=== PATIENT | male | born 1965 | race Caucasian/White ===

== ENCOUNTER → 2020-01-21 | Outpatient (CLI) | payer BC ==
[2020-01-21 13:28] LABS: HEMATOCRIT 42.8 % (42.0-52.0); HEMOGLOBIN 13.8 g/dl (13.5-18.0); MEAN CELL VOLUME 91 fl (80.0-100.0); MEAN CORPUSCULAR HEMOGLOBIN 29 pg (27.0-31.0); MEAN CORPUSCULAR HGB CONC 32 g/dl (33.0-37.0); MEAN PLATELET VOLUME 11.6 fl (7.4-10.4); PLATELET COUNT 132 K/mm3 (130-400); RED BLOOD COUNT 4.72 M/mm3 (4.20-5.60); REDCELL DISTRIBUTION WIDTH-CV 12.5 % (11.5-14.5)
[2020-01-21 13:42] LABS: ALBUMIN 4.6 gm/dL (3.5-5.0); BILIRUBIN,TOTAL 1.1 mg/dL (0.0-1.0); CALCIUM 10.3 mg/dL (8.4-10.2); CREATININE, serum 1.15 (0.66-1.25); TOTAL PROTEIN 8.8 gm/dL (6.4-8.2)
[2020-01-21 13:55] LABS: BAND 6 % (0-10); EOSINOPHIL 1 % (0-4); LYMPHOCYTE 24 % (20.0-51.0); METAMYELOCYTE 2 % (0-0); NEUTROPHILS 55 % (42.0-75.2); PLATELET ESTIMATE NORMAL (NORMAL)
== END ==
LOC: COL.RAD 12:51
PROVIDERS: Emergency Medicine
DX: C85.90 Non-Hodgkin lymphoma, unspecified, unspecified site (principal); K80.20 Calculus of gallbladder without cholecystitis without obstruction; N20.0 Calculus of kidney

== ENCOUNTER → 2020-01-26 | Outpatient (CLI) | payer BC | LOC: COL.RAD 07:06 | DX: K80.20 Calculus of gallbladder without cholecystitis without obstruction (principal); N28.89 Other specified disorders of kidney and ureter | CPT/HCPCS: A9537; J2805 ==

== ENCOUNTER → 2020-02-01 | Outpatient (CLI) | payer BC | LOC: COL.RAD 09:45 | DX: E27.8 Other specified disorders of adrenal gland (principal); N20.0 Calculus of kidney; K80.20 Calculus of gallbladder without cholecystitis without obstruction; R59.0 Localized enlarged lymph nodes; R16.1 Splenomegaly, not elsewhere classified; K76.0 Fatty (change of) liver, not elsewhere classified; N40.0 Benign prostatic hyperplasia without lower urinary tract symptoms | CPT/HCPCS: Q9967 ==

== ENCOUNTER → 2020-02-17 | Outpatient (CLI) | payer BC | LOC: COL.RAD 14:20 | DX: K80.20 Calculus of gallbladder without cholecystitis without obstruction (principal); E27.8 Other specified disorders of adrenal gland | CPT/HCPCS: A9585 ==

== ENCOUNTER 2020-06-28 03:36 | Observation (INO) | payer BC ==
[~2020-06-28] VITALS: Ht 172.7 cm; Wt 90.9 kg
[2020-06-28 04:51] LABS: MEAN CELL VOLUME 93 fl (80.0-100.0); MEAN CORPUSCULAR HEMOGLOBIN 33 pg (27.0-31.0); MEAN CORPUSCULAR HGB CONC 36 g/dl (33.0-37.0); MEAN PLATELET VOLUME 10.7 fl (7.4-10.4); PLATELET COUNT 123 K/mm3 (130-400); REDCELL DISTRIBUTION WIDTH-CV 18.4 % (11.5-14.5)
[2020-06-28 04:56] LABS: HEMATOCRIT 30.6 % (42.0-52.0)
[2020-06-28 05:10] LABS: ALBUMIN 4.1 gm/dL (3.5-5.0); C-REACTIVE PROTEIN 1.2 mg/dL (0.0-0.9); CALCIUM 9.2 mg/dL (8.4-10.2); CREATININE, serum 1.03 (0.66-1.25); MAGNESIUM 1.8 mg/dL (1.6-2.3); POTASSIUM 4.3 mmol/L (3.4-5.0); TOTAL PROTEIN 7.3 gm/dL (6.4-8.2)
[2020-06-28 05:19] LABS: TROPONIN-I 0.016 ng/mL (0.000-0.035)
[2020-06-28 05:50] LABS: BAND 6 % (0-10); LYMPHOCYTE 8 % (20.0-51.0); NEUTROPHILS 84 % (42.0-75.2)
[2020-06-28 05:51] LABS: ANISOCYTOSIS 2+; TEAR DROP CELLS 1+
[2020-06-28 05:54] LABS: COLLECTION METHOD CLEAN CATCH
[2020-06-28 06:12] LABS: PH 7 (5-8); SQUAMOUS EPITHELIAL None Seen /hpf; URINE APPEARANCE Clear; URINE BACTERIA None Seen /hpf; URINE BILIRUBIN Negative (NEGATIVE); URINE BLOOD Negative (NEGATIVE); URINE COLOR Yellow; URINE GLUCOSE Negative (NEGATIVE); URINE KETONE Negative (NEGATIVE); URINE LEUKOCYTE ESTERASE Negative (NEGATIVE); URINE NITRATE Negative (NEGATIVE); URINE PROTEIN(semi-quant) Negative (NEGATIVE); URINE RBC 0-2 /hpf; URINE UROBILINOGEN Negative (NEGATIVE)
[2020-06-28] MEDS ORDERED: PRILOSEC 20MG20 MG PO (07:41)
[2020-06-28] MEDS ORDERED: ATIVAN 0.50.5 MG/TAB PO (07:42)
[2020-06-28] MEDS ORDERED: FLORINEF ACETA0.1 MG PO (07:42)
[2020-06-28] MEDS ORDERED: UROCIT-K 1010 MEQ PO (07:43)
[2020-06-28] MEDS ORDERED: ZOFRAN 4MG T4 MG/TAB PO (07:44)
[2020-06-28] MEDS ORDERED: SYNTHROID0.125 MG/T PO (07:44)
[2020-06-28] MEDS ORDERED: SINGULAIR 110 MG/TAB PO (07:44)
[2020-06-28] MEDS ORDERED: COMPAZINE 110 MG/TAB PO (07:45)
[2020-06-28] MEDS ORDERED: CORTEF 10MG TAB10 MG PO (13:53)
[2020-06-28 17:16] VITALS: BP 102/67; PULSE 95; TEMP 98.1
[2020-06-28 17:18] VITALS: BP 102/67; PULSE 95; TEMP 98.1
--- NOTE | 2020-06-28 18:42 | NUR ---
Pt up to room 307, A&0, independent in room, on room air, breathing is even and unlabored. Pt denies SOB, N/V/D, LS cta, HRRR, BS active X4, pulses strong bilaterally. 1+ edema to BLE. RAC IV w/ NS @ 125ml/hr running w/o difficulty. Pt down to have CT of chest this afternoon, allergy to iodine/contrast, prepped w/ Benadryl, Solumedrol, and pepcid IV per verbal order from Dr. Biswas. Pt tolerated well. Pulses strong bilaterally. Pt denies any pain or needs at this time. All questions answered, POC discussed.
[2020-06-28 20:19] VITALS: BP 117/73; PULSE 99; TEMP 97.5
[2020-06-29 00:39] VITALS: BP 110/66; PULSE 90; TEMP 97.8
[2020-06-29] MEDS ORDERED: FLONASE NASAL S16 GM NS (01:07)
[2020-06-29 04:54] VITALS: BP 117/74; PULSE 100; TEMP 97.7
[2020-06-29 06:31] LABS: MEAN CELL VOLUME 93 fl (80.0-100.0); MEAN CORPUSCULAR HGB CONC 37 g/dl (33.0-37.0); MEAN PLATELET VOLUME 11.8 fl (7.4-10.4); PLATELET COUNT 105 K/mm3 (130-400); RED BLOOD COUNT 2.56 M/mm3 (4.20-5.60); REDCELL DISTRIBUTION WIDTH-CV 17.5 % (11.5-14.5)
[2020-06-29 06:39] LABS: ALBUMIN 3.7 gm/dL (3.5-5.0); BILIRUBIN,TOTAL 0.7 mg/dL (0.0-1.0); CALCIUM 8.8 mg/dL (8.4-10.2); CREATININE, serum 0.87 (0.66-1.25); HEMATOCRIT 23.9 % (42.0-52.0); MEAN CORPUSCULAR HEMOGLOBIN 34 pg (27.0-31.0); POTASSIUM 4.2 mmol/L (3.4-5.0); TOTAL PROTEIN 6.6 gm/dL (6.4-8.2)
[2020-06-29 06:41] LABS: HEMOGLOBIN 8.8 g/dl (13.5-18.0)
[2020-06-29 08:39] LABS: BAND 15 % (0-10); LYMPHOCYTE 5 % (20.0-51.0); NEUTROPHILS 80 % (42.0-75.2)
[2020-06-29 08:40] LABS: ANISOCYTOSIS 2+; MICROCYTOSIS 1+; POIKILOCYTOSIS 1+
[2020-06-29 08:41] LABS: PLATELET ESTIMATE NORMAL (NORMAL)
[2020-06-29 08:47] VITALS: BP 127/78; PULSE 99; TEMP 97.3
--- NOTE | 2020-06-29 09:04 | NUR ---
SW met with the patient to discuss discharge plan. The patient lives in [place] with his , Fiona (ph#[phone]). He reports independence with ADLs and does not have any DME. The patient's PCP is Dr. Nick Pan and he receives his medications at [facility] in [facility]. He reports no difficulties obtaining his meds. The patient does not have a DPOA-HC in EMR, but he states that he does have one completed and that his is his DPOA-HC. The patient plans to return back home with his upon discharge. No additional needs at this time.
--- NOTE | 2020-06-29 09:18 | NUR ---
Initial visit; Patient thanked [employer] for looking in on him and offering God's blessings and to keep him in [employer]'s prayers.
--- NOTE | 2020-06-29 09:40 | NUR ---
Patient is alert and oriented, denies any pain. clear-all lung field. heart sound is normal s1,s2. Provider DC 125mL NS this am. Plan is to discharge patient today after blood culture has been resolved. Patient remain afebrile.
[2020-06-29 12:05] VITALS: BP 122/70; PULSE 92; TEMP 97.8
[2020-06-29] MEDS ORDERED: AMOXICILLIN 8751 TAB PO (13:18)
--- NOTE | 2020-06-29 14:55 | NUR ---
Patient recieved discharge instruction, followup appt, new order for amoxicillin/Clavulanate. INT discontinued. Patient discharge home with . Patient have no further concern and question at this time
--- NOTE | 2020-06-29 15:12 | NUR ---
Patient was informed his wbc is 2.7 and need to take precaution. follow up for wbc recheck was setup for patient for the 07/05
== END 2020-06-29 14:30 | disposition home or self-care (01) ==
LOC: COL.ER 03:36 → MEDICAL 07:13
PROVIDERS: Emergency Medicine; Physician Assistant; ADMIT Student in an Organized Health Care Education/Training Program
DX: R50.9 Fever, unspecified (principal); R53.83 Other fatigue; R00.0 Tachycardia, unspecified; C85.86 Other specified types of non-Hodgkin lymphoma, intrapelvic lymph nodes; D63.0 Anemia in neoplastic disease; D61.818 Other pancytopenia; I95.9 Hypotension, unspecified; N20.0 Calculus of kidney; E03.9 Hypothyroidism, unspecified; G25.81 Restless legs syndrome; F41.9 Anxiety disorder, unspecified; R94.5 Abnormal results of liver function studies; Z20.828 Contact with and (suspected) exposure to other viral communicable diseases; Z91.041 Radiographic dye allergy status; Z79.899 Other long term (current) drug therapy
CPT/HCPCS: G0378; J0692; J1200; J1720; J2930; J7030; Q9967

== ENCOUNTER 2020-07-10 23:21 | Inpatient (IN) | payer BC ==
[~2020-07-10] VITALS: Ht 172.7 cm; Wt 87.9 kg
[~2020-07-10 23:21] MED LIST: AMOXICILLIN 8751 TAB PO; ATIVAN 0.50.5 MG/TAB PO; COMPAZINE 110 MG/TAB PO; CORTEF 10MG TAB10 MG PO; FLONASE NASAL S16 GM NS; FLORINEF ACETA0.1 MG PO; PRILOSEC 20MG20 MG PO; SINGULAIR 110 MG/TAB PO; SYNTHROID0.125 MG/T PO; UROCIT-K 1010 MEQ PO; ZOFRAN 4MG T4 MG/TAB PO
[2020-07-11 00:24] LABS: MEAN CELL VOLUME 97 fl (80.0-100.0); MEAN CORPUSCULAR HGB CONC 37 g/dl (33.0-37.0); MEAN PLATELET VOLUME 13.1 fl (7.4-10.4); PLATELET COUNT 76 K/mm3 (130-400); RED BLOOD COUNT 2.43 M/mm3 (4.20-5.60); REDCELL DISTRIBUTION WIDTH-CV 17.3 % (11.5-14.5)
[2020-07-11 00:27] LABS: HEMATOCRIT 23.5 % (42.0-52.0); HEMOGLOBIN 8.8 g/dl (13.5-18.0); MEAN CORPUSCULAR HEMOGLOBIN 36 pg (27.0-31.0)
[2020-07-11 00:39] LABS: COLLECTION METHOD CLEAN CATCH
[2020-07-11 00:40] LABS: ALBUMIN 3.9 gm/dL (3.5-5.0); BILIRUBIN,TOTAL 0.9 mg/dL (0.0-1.0); C-REACTIVE PROTEIN 1.6 mg/dL (0.0-0.9); CALCIUM 9.1 mg/dL (8.4-10.2); CREATININE, serum 1.01 (0.66-1.25); POTASSIUM 4.1 mmol/L (3.4-5.0); TOTAL PROTEIN 6.8 gm/dL (6.4-8.2)
[2020-07-11] MEDS ORDERED: AMOXICILLIN 8751 TAB PO (00:40)
[2020-07-11 00:57] LABS: BASOPHIL 4 % (0-2); LYMPHOCYTE 36 % (20.0-51.0); NEUTROPHILS 12 % (42.0-75.2); PLATELET ESTIMATE DECREASED (NORMAL)
[2020-07-11 00:58] LABS: ANISOCYTOSIS 1+; TEAR DROP CELLS 1+
[2020-07-11 01:26] LABS: MUCOUS Present /lpf; PH 8 (5-8); SQUAMOUS EPITHELIAL None Seen /hpf; URINE APPEARANCE Hazy; URINE BACTERIA Rare /hpf; URINE BILIRUBIN Negative (NEGATIVE); URINE BLOOD Negative (NEGATIVE); URINE COLOR Yellow; URINE GLUCOSE Negative (NEGATIVE); URINE KETONE Negative (NEGATIVE); URINE LEUKOCYTE ESTERASE Negative (NEGATIVE); URINE NITRATE Negative (NEGATIVE); URINE PROTEIN(semi-quant) Negative (NEGATIVE); URINE RBC 0-2 /hpf; URINE UROBILINOGEN Negative (NEGATIVE)
[2020-07-11 02:18] VITALS: BP 102/55; PULSE 76; TEMP 98.1
[2020-07-11 03:44] VITALS: BP 113/74; PULSE 108; TEMP 98
[2020-07-11 07:44] VITALS: BP 112/68; PULSE 119; TEMP 101
[2020-07-11 11:55] VITALS: BP 111/68; PULSE 112; TEMP 98.7
[2020-07-11 16:08] VITALS: BP 125/69; PULSE 109; TEMP 99.3
[2020-07-12] VITALS (10 sets, daily range): BP systolic 89–114; BP diastolic 43–97; PULSE 76–134; TEMP 98.1–99.9
[2020-07-12 06:40] LABS: MEAN CELL VOLUME 97 fl (80.0-100.0); MEAN CORPUSCULAR HGB CONC 37 g/dl (33.0-37.0); MEAN PLATELET VOLUME 13.2 fl (7.4-10.4); PLATELET COUNT 68 K/mm3 (130-400); RED BLOOD COUNT 2.35 M/mm3 (4.20-5.60); REDCELL DISTRIBUTION WIDTH-CV 18.1 % (11.5-14.5)
[2020-07-12 06:47] LABS: HEMATOCRIT 22.8 % (42.0-52.0); HEMOGLOBIN 8.5 g/dl (13.5-18.0); MEAN CORPUSCULAR HEMOGLOBIN 36 pg (27.0-31.0)
[2020-07-12 07:11] LABS: CALCIUM 8.9 mg/dL (8.4-10.2); CREATININE, serum 1.17 (0.66-1.25); POTASSIUM 4.3 mmol/L (3.4-5.0)
[2020-07-12 08:25] LABS: BAND 42 % (0-10); LYMPHOCYTE 9 % (20.0-51.0); METAMYELOCYTE 8 % (0-0); MYELOCYTE 7 % (0-0); NEUTROPHILS 26 % (42.0-75.2); NUCLEATED RED BLOOD CELL 2 (0-6)
[2020-07-12 08:26] LABS: HYPOCHROMIA 1+; PLATELET ESTIMATE DECREASED (NORMAL); SPHEROCYTE 1+; TEAR DROP CELLS 1+
[2020-07-12 08:42] LABS: PATHOLOGY DIFF REVIEW OK +
[2020-07-12] MEDS ORDERED: CORTEF 10MG TAB10 MG PO (17:12)
[2020-07-13 03:24] VITALS: BP 120/76; PULSE 100; TEMP 98.9
[2020-07-13 06:11] LABS: MEAN CELL VOLUME 95 fl (80.0-100.0); MEAN CORPUSCULAR HGB CONC 33 g/dl (33.0-37.0); MEAN PLATELET VOLUME 13.5 fl (7.4-10.4); PLATELET COUNT 63 K/mm3 (130-400); RED BLOOD COUNT 2.57 M/mm3 (4.20-5.60); REDCELL DISTRIBUTION WIDTH-CV 18.3 % (11.5-14.5)
[2020-07-13 06:16] LABS: HEMATOCRIT 24.5 % (42.0-52.0); MEAN CORPUSCULAR HEMOGLOBIN 31 pg (27.0-31.0)
[2020-07-13 06:26] LABS: CALCIUM 8.6 mg/dL (8.4-10.2); CREATININE, serum 0.98 (0.66-1.25); POTASSIUM 4.1 mmol/L (3.4-5.0)
[2020-07-13 07:56] LABS: BAND 45 % (0-10); LYMPHOCYTE 4 % (20.0-51.0); METAMYELOCYTE 17 % (0-0); MYELOCYTE 2 % (0-0); NEUTROPHILS 25 % (42.0-75.2); PLATELET ESTIMATE DECREASED (NORMAL)
[2020-07-13 07:57] LABS: MICROCYTOSIS 1+; TEAR DROP CELLS 1+
[2020-07-13 09:40] VITALS: BP 121/72; PULSE 101; TEMP 97.8
== END 2020-07-13 11:20 | disposition home or self-care (01) | DRG 872 ==
LOC: COL.ER 23:21 → MEDICAL 07-11 01:20
PROVIDERS: Physician Assistant; ADMIT Emergency Medicine
DX: A41.9 Sepsis, unspecified organism (principal); C85.90 Non-Hodgkin lymphoma, unspecified, unspecified site; E27.49 Other adrenocortical insufficiency; G25.81 Restless legs syndrome; D70.1 Agranulocytosis secondary to cancer chemotherapy; R50.81 Fever presenting with conditions classified elsewhere; T45.1X5A Adverse effect of antineoplastic and immunosuppressive drugs, initial encounter; Z20.828 Contact with and (suspected) exposure to other viral communicable diseases; D64.9 Anemia, unspecified; D69.6 Thrombocytopenia, unspecified; F41.9 Anxiety disorder, unspecified; K21.9 Gastro-esophageal reflux disease without esophagitis; E03.9 Hypothyroidism, unspecified
CPT/HCPCS: 99222-AI; 99232-AI; 99239; J0692; J1447; J1644; J2405; J7030

== ENCOUNTER 2020-08-02 11:02 | Emergency (ER) | payer BC ==
[~2020-08-02] VITALS: Ht 172.7 cm; Wt 90.9 kg
[2020-08-02 11:11] VITALS: TEMP 97.8
[2020-08-02] MEDS ORDERED: OMEGA-3 1000 MG1 CAP PO (11:17)
[2020-08-02] MEDS ORDERED: CRANBERRY450 MG PO (11:18)
[2020-08-02] MEDS ORDERED: MAGNESIUM250 M1 PO (11:19)
[2020-08-02] MEDS ORDERED: ONE-A-DAY ESSE1 EACH PO (11:19)
[2020-08-02] MEDS ORDERED: CYMBALTA 30MG30 MG PO (11:21)
[2020-08-02 12:01] LABS: MEAN CELL VOLUME 102 fl (80.0-100.0); MEAN CORPUSCULAR HGB CONC 34 g/dl (33.0-37.0); MEAN PLATELET VOLUME 12.8 fl (7.4-10.4); PLATELET COUNT 70 K/mm3 (130-400); RED BLOOD COUNT 2.62 M/mm3 (4.20-5.60); REDCELL DISTRIBUTION WIDTH-CV 15.7 % (11.5-14.5)
[2020-08-02 12:02] LABS: HEMATOCRIT 26.7 % (42.0-52.0); MEAN CORPUSCULAR HEMOGLOBIN 34 pg (27.0-31.0)
[2020-08-02 12:14] LABS: BAND 26 % (0-10); EOSINOPHIL 6 % (0-4); LYMPHOCYTE 16 % (20.0-51.0); METAMYELOCYTE 7 % (0-0); MYELOCYTE 3 % (0-0); NEUTROPHILS 29 % (42.0-75.2); NUCLEATED RED BLOOD CELL 3 (0-6); OVALOCYTES 1+; TARGET CELLS 1+
[2020-08-02 12:15] LABS: PLATELET ESTIMATE DECREASED (NORMAL)
[2020-08-02 12:30] LABS: ALBUMIN 4.1 gm/dL (3.5-5.0); BILIRUBIN,TOTAL 0.7 mg/dL (0.0-1.0); CALCIUM 9.5 mg/dL (8.4-10.2); CREATININE, serum 0.96 (0.66-1.25); POTASSIUM 4.2 mmol/L (3.4-5.0); TOTAL PROTEIN 6.9 gm/dL (6.4-8.2)
[2020-08-02 13:20] LABS: COLLECTION METHOD CLEAN CATCH
[2020-08-02 13:50] LABS: MUCOUS Present /lpf; PH 7 (5-8); SQUAMOUS EPITHELIAL None Seen /hpf; URINE APPEARANCE Clear; URINE BACTERIA None Seen /hpf; URINE BILIRUBIN Negative (NEGATIVE); URINE BLOOD Negative (NEGATIVE); URINE COLOR Yellow; URINE GLUCOSE Negative (NEGATIVE); URINE KETONE Negative (NEGATIVE); URINE LEUKOCYTE ESTERASE Negative (NEGATIVE); URINE NITRATE Negative (NEGATIVE); URINE PROTEIN(semi-quant) Negative (NEGATIVE); URINE RBC 0-2 /hpf; URINE UROBILINOGEN Negative (NEGATIVE)
[2020-08-02 14:37] VITALS: BP 120/83; PULSE 105
[2020-08-03 08:21] LABS: PATHOLOGY DIFF REVIEW OK
== END 2020-08-02 14:37 | disposition home or self-care (01) ==
LOC: COL.ER 11:02
PROVIDERS: Emergency Medicine
DX: R00.0 Tachycardia, unspecified (principal); C85.90 Non-Hodgkin lymphoma, unspecified, unspecified site
CPT/HCPCS: J2060; J7030

== ENCOUNTER → 2021-03-20 | Outpatient (CLI) | payer BC ==
[~2021-03-20] MED LIST changes: +CRANBERRY450 MG PO; +CYMBALTA 30MG30 MG PO; +MAGNESIUM250 M1 PO; +OMEGA-3 1000 MG1 CAP PO; +ONE-A-DAY ESSE1 EACH PO
== END ==
LOC: COL.RAD 11:00
DX: K22.4 Dyskinesia of esophagus (principal)

== ENCOUNTER → 2021-03-30 | Outpatient (CLI) | payer BC | LOC: COL.RAD 07:26 | DX: C83.39 Diffuse large B-cell lymphoma, extranodal and solid organ sites (principal); K80.20 Calculus of gallbladder without cholecystitis without obstruction; N40.0 Benign prostatic hyperplasia without lower urinary tract symptoms; N20.2 Calculus of kidney with calculus of ureter; Z95.9 Presence of cardiac and vascular implant and graft, unspecified ==